=== PATIENT | male | born 1940 | race Caucasian/White ===

== ENCOUNTER 2018-05-09 20:02 | Emergency (ER) | payer MEDICARE, OTHER ==
[~2018-05-09] VITALS: Ht 185.4 cm; Wt 84.2 kg
[~2018-05-09 20:02] MED LIST: DILT120C62 PO; DOCU-28 PO; FLEC50TA PO; PANT-47 PO; POLY17PO10 PO
[2018-05-09] MEDS ORDERED: vancomycin/NS 1 GM ADD-VANTAGE 250 ML IV ONE (21:00)
[2018-05-09] MEDS ORDERED: clindamycin-Cleocin 900mg/D5W 50 ML IV ONE (21:00)
[2018-05-09] MEDS ORDERED: ondansetron 4mg rapidly disintigrating tab PO ONE (21:05)
[2018-05-09] MEDS ORDERED: HYDROcodone/acetaminophen 10/325mg tab PO ONE (21:05)
[2018-05-09] MEDS ORDERED: CEPH-572 PO (21:22)
[2018-05-09] MEDS ORDERED: ONDA4TAB9 PO (21:22)
[2018-05-09] MEDS ORDERED: HYDR-3965 PO (21:22)
[2018-05-09] MEDS ORDERED: CLIN150C2 PO (21:22)
[2018-05-09 23:04] VITALS: BP 103/64
[2018-05-11] MEDS ORDERED: DOCU250C4 PO (19:50)
[2018-05-11] MEDS ORDERED: RANI150T44 PO (19:50)
[2018-05-15] MEDS ORDERED: LACT1CAP26 PO (11:26)
[2018-05-15] MEDS ORDERED: CLIN150C2 PO (11:26)
== END 2018-05-09 23:09 | disposition home or self-care (01) ==
LOC: ER 20:03
DX: H60.11 Cellulitis of right external ear (principal); I48.91 Unspecified atrial fibrillation; K21.9 Gastro-esophageal reflux disease without esophagitis; G89.29 Other chronic pain; Z98.890 Other specified postprocedural states; Z88.5 Allergy status to narcotic agent; Z88.2 Allergy status to sulfonamides; Z79.899 Other long term (current) drug therapy
CPT/HCPCS: 87070; 87077; 87186; 96365; 96368; 99284; J3370; J3490

== ENCOUNTER 2018-05-18 17:46 | Emergency (ER) | payer MEDICARE, OTHER ==
[~2018-05-18] VITALS: Ht 185.4 cm; Wt 83.0 kg
[~2018-05-18 17:46] MED LIST changes: +CLIN150C2 PO; -DOCU-28 PO; +DOCU250C4 PO; +LACT1CAP26 PO; -PANT-47 PO; +RANI150T44 PO
[2018-05-18] MEDS ORDERED: mag hydrox/Alum hydrox/simeth 30ml oral suspension PO ONE (20:20)
[2018-05-18] MEDS ORDERED: LIDOcaine Viscous 15ml cup MM PRN (20:20)
[2018-05-18 21:24] VITALS: BP 112/57
== END 2018-05-18 21:25 | disposition home or self-care (01) ==
LOC: ER 17:47
DX: R13.10 Dysphagia, unspecified (principal); I48.91 Unspecified atrial fibrillation; K21.9 Gastro-esophageal reflux disease without esophagitis; Z98.890 Other specified postprocedural states; Z88.8 Allergy status to other drugs, medicaments and biological substances; Z88.2 Allergy status to sulfonamides; Z79.01 Long term (current) use of anticoagulants; Z79.899 Other long term (current) drug therapy
CPT/HCPCS: 99284

== ENCOUNTER 2018-11-06 11:40 | Emergency (ER) | payer MEDICARE, OTHER ==
[~2018-11-06] VITALS: Ht 185.4 cm; Wt 86.0 kg
[~2018-11-06 11:40] MED LIST changes: -CLIN150C2 PO
[2018-11-06 12:29] VITALS: BP 134/68
== END 2018-11-06 16:35 | disposition left against medical advice (07) ==
LOC: ER 11:40
DX: M79.604 Pain in right leg (principal); Z53.21 Procedure and treatment not carried out due to patient leaving prior to being seen by health care provider

== ENCOUNTER 2019-12-26 14:01 | Emergency (ER) | payer MEDICARE, OTHER ==
[~2019-12-26] VITALS: Ht 185.4 cm; Wt 87.0 kg
[~2019-12-26 14:01] MED LIST changes: +DOCU-329 PO; -DOCU250C4 PO; +RANI-648 PO; -RANI150T44 PO
[2019-12-26 14:16] VITALS: BP 117/71
[2019-12-26] MEDS ORDERED: acetaminophen 325mg tablet PO ONE (15:30)
[2019-12-26 15:49] LABS: BASOPHILS % (AUTO) 0.4 % (0-1); EOSINOPHILS # (AUTO) 0.1 X10'3 (0-0.9); EOSINOPHILS % (AUTO) 1.5 % (0-6); HEMATOCRIT 45.5 % (42.0-52.0); HEMOGLOBIN 15.6 g/dl (14.0-17.9); LYMPHOCYTES # (AUTO) 1.1 X10'3 (1.1-4.8); LYMPHOCYTES % (AUTO) 16.2 % (21-51); MEAN CORPUSCULAR HEMOGLOBIN 31.7 PG (27.0-31.0); MEAN CORPUSCULAR HGB CONC 34.4 g/dL (33.0-36.5); MEAN CORPUSCULAR VOLUME 92.1 FL (78-98); MEAN PLATELET VOLUME 8.2 FL (7.4-10.4); MONOCYTES # (AUTO) 0.9 X10'3 (0-0.9); MONOCYTES % (AUTO) 13.3 % (2-12); NEUTROPHILS # (AUTO) 4.5 X10'3 (1.8-7.7); NEUTROPHILS % (AUTO) 68.6 % (42-75); PLATELET COUNT 136 X10'3 (140-440); RED BLOOD COUNT 4.94 X10'6 (4.70-6.10); RED CELL DISTRIBUTION WIDTH 13.4 % (11.5-14.5); WHITE BLOOD COUNT 6.6 X10'3 (4.5-11.0)
[2019-12-26 15:58] LABS: PARTIAL THROMBOPLASTIN TIME 37 SECONDS (22-32)
[2019-12-26 16:00] LABS: ALANINE AMINOTRANSFERASE 23 U/L (12-78); ALBUMIN 3.8 G/DL (3.4-5.0); ALBUMIN/GLOBULIN RATIO 1.1 (1.1-1.5); ALKALINE PHOSPHATASE 77 IU/L (46-116); ANION GAP 5 (8-16); ASPARTATE AMINO TRANSFERASE 25 U/L (10-37); BILIRUBIN,TOTAL 0.4 MG/DL (0.1-1.0); BLOOD UREA NITROGEN 11 MG/DL (7-18); BUN/CREATININE RATIO 10.5 (5.4-32.0); CHLORIDE 104 MMOL/L (99-107); CREATININE 1.05 MG/DL (0.60-1.10); GLUCOSE 124 MG/DL (70-104); POTASSIUM 4.3 MMOL/L (3.5-5.1); SODIUM 140 MMOL/L (135-145); TOTAL CARBON DIOXIDE 30.9 MMOL/L (24-32); TOTAL PROTEIN 7.3 G/DL (6.4-8.2); eGFR 68 ML/MIN
[2019-12-26] MEDS ORDERED: TAM75C PO (17:20)
== END 2019-12-26 18:15 | disposition home or self-care (01) ==
LOC: ER 14:01
DX: J10.1 Influenza due to other identified influenza virus with other respiratory manifestations (principal); I48.91 Unspecified atrial fibrillation; K21.9 Gastro-esophageal reflux disease without esophagitis; G89.29 Other chronic pain; Z98.890 Other specified postprocedural states; Z90.49 Acquired absence of other specified parts of digestive tract; Z88.5 Allergy status to narcotic agent; Z88.2 Allergy status to sulfonamides; Z79.899 Other long term (current) drug therapy; Z79.01 Long term (current) use of anticoagulants
CPT/HCPCS: 36415; 71045; 80053; 83880; 85025; 85610; 85730; 87502; 87503; 99284

== ENCOUNTER 2021-03-17 09:09 | Emergency (ER) | payer MEDICARE, OTHER ==
[~2021-03-17] VITALS: Ht 185.4 cm; Wt 74.9 kg
[~2021-03-17 09:09] MED LIST changes: -DILT120C62 PO; +DILT30TA5 PO; -DOCU-329 PO; +FAMO40TA86 PO; +FLO0.4C PO; -LACT1CAP26 PO; +PANT40TA54 PO; -POLY17PO10 PO; -RANI-648 PO
[2021-03-17 09:37] VITALS: BP 122/79
[2021-03-17 10:22] LABS: CLARITY,URINE CLEAR (Clear); COLOR,URINE YELLOW (Yellow); GLUCOSE, URINE NEGATIVE (Neg); KETONES,URINE NEGATIVE (Neg); LEUKOCYTE ESTERASE ,URINE NEGATIVE (Neg); NITRITES, URINE NEGATIVE (Neg); OCCULT BLOOD,URINE NEGATIVE (Neg); PROTEIN,URINE NEGATIVE (Neg)
[2021-03-17 10:27] LABS: UA COLLECTION TYPE CLN CATCH MIDSTREAM
[2021-03-17 10:37] LABS: BASOPHILS % (AUTO) 0.3 % (0-1); EOSINOPHILS # (AUTO) 0.1 X10'3 (0-0.9); HEMATOCRIT 41.2 % (42.0-52.0); HEMOGLOBIN 13.6 g/dl (14.0-17.9); LYMPHOCYTES # (AUTO) 1.5 X10'3 (1.1-4.8); LYMPHOCYTES % (AUTO) 31.8 % (21-51); MEAN CORPUSCULAR HEMOGLOBIN 30.4 PG (27.0-31.0); MEAN CORPUSCULAR VOLUME 92.1 FL (78-98); MONOCYTES # (AUTO) 0.4 X10'3 (0-0.9); MONOCYTES % (AUTO) 9.1 % (2-12); NEUTROPHILS # (AUTO) 2.6 X10'3 (1.8-7.7); NEUTROPHILS % (AUTO) 55.8 % (42-75); PLATELET COUNT 151 X10'3 (140-440); RED BLOOD COUNT 4.47 X10'6 (4.70-6.10); RED CELL DISTRIBUTION WIDTH 13.8 % (11.5-14.5); WHITE BLOOD COUNT 4.7 X10'3 (4.5-11.0)
[2021-03-17 10:47] LABS: ALANINE AMINOTRANSFERASE 19 U/L (12-78); ALBUMIN 3.4 G/DL (3.4-5.0); ALKALINE PHOSPHATASE 77 IU/L (46-116); AMYLASE 35 U/L (25-115); ANION GAP 7 (8-16); ASPARTATE AMINO TRANSFERASE 20 U/L (10-37); BILIRUBIN,TOTAL 0.7 MG/DL (0.1-1.0); BLOOD UREA NITROGEN 12 MG/DL (7-18); CALCIUM 8.5 MG/DL (8.5-10.1); CHLORIDE 105 MMOL/L (99-107); CREATININE 0.92 MG/DL (0.60-1.10); GLUCOSE 101 MG/DL (70-104); LIPASE 63 U/L (73-393); POTASSIUM 4.3 MMOL/L (3.5-5.1); SODIUM 141 MMOL/L (135-145); TOTAL CARBON DIOXIDE 29.1 MMOL/L (24-32); TOTAL PROTEIN 6.9 G/DL (6.4-8.2); eGFR 79 ML/MIN
[2021-03-17] MEDS ORDERED: HYDR25SU32 RC (13:59)
[2021-03-17] MEDS ORDERED: POLY119P2 PO (14:00)
== END 2021-03-17 14:19 | disposition home or self-care (01) ==
LOC: ER 09:10
DX: K62.89 Other specified diseases of anus and rectum (principal); K59.00 Constipation, unspecified; I48.91 Unspecified atrial fibrillation; K21.9 Gastro-esophageal reflux disease without esophagitis; G47.39 Other sleep apnea; G89.29 Other chronic pain; Z79.899 Other long term (current) drug therapy; Z90.49 Acquired absence of other specified parts of digestive tract; Z88.8 Allergy status to other drugs, medicaments and biological substances; Z88.2 Allergy status to sulfonamides
CPT/HCPCS: 36415; 74022; 80053; 81003; 82150; 83690; 85025; 99284

== ENCOUNTER 2021-11-21 20:39 | Emergency (ER) | payer MEDICARE, OTHER ==
[~2021-11-21] VITALS: Ht 190.5 cm; Wt 80.0 kg
[~2021-11-21 20:39] MED LIST changes: +HYDR25SU32 RC; +POLY119P2 PO
[2021-11-21] MEDS ORDERED: normal saline 1000ML IV soln IV ONE (20:55)
[2021-11-21] MEDS ORDERED: IOHEXOL 12MG/ML oral solution 500 ML BOTTLE PO ONE (20:55)
[2021-11-21 21:00] LABS: BASOPHILS % (AUTO) 0.2 % (0-1); EOSINOPHILS # (AUTO) 0.2 X10'3 (0-0.9); EOSINOPHILS % (AUTO) 2.3 % (0-6); HEMATOCRIT 40.8 % (42.0-52.0); HEMOGLOBIN 13.9 g/dl (14.0-17.9); LYMPHOCYTES # (AUTO) 1.7 X10'3 (1.1-4.8); LYMPHOCYTES % (AUTO) 21.5 % (21-51); MEAN CORPUSCULAR HEMOGLOBIN 30.7 PG (27.0-31.0); MEAN CORPUSCULAR VOLUME 90.4 FL (78-98); MEAN PLATELET VOLUME 8.4 FL (7.4-10.4); MONOCYTES # (AUTO) 0.7 X10'3 (0-0.9); MONOCYTES % (AUTO) 8.5 % (2-12); NEUTROPHILS # (AUTO) 5.2 X10'3 (1.8-7.7); NEUTROPHILS % (AUTO) 67.5 % (42-75); PLATELET COUNT 155 X10'3 (140-440); RED BLOOD COUNT 4.52 X10'6 (4.70-6.10); RED CELL DISTRIBUTION WIDTH 13.7 % (11.5-14.5); WHITE BLOOD COUNT 7.7 X10'3 (4.5-11.0)
[2021-11-21 21:16] LABS: ALANINE AMINOTRANSFERASE 18 U/L (12-78); ALBUMIN 3.3 G/DL (3.4-5.0); ALBUMIN/GLOBULIN RATIO 1.1 (1.1-1.5); ALKALINE PHOSPHATASE 67 IU/L (46-116); ANION GAP 6 (8-16); ASPARTATE AMINO TRANSFERASE 23 U/L (10-37); BILIRUBIN,TOTAL 0.5 MG/DL (0.1-1.0); BLOOD UREA NITROGEN 18 MG/DL (7-18); BUN/CREATININE RATIO 17.5 (5.4-32.0); CALCIUM 8.7 MG/DL (8.5-10.1); CHLORIDE 103 MMOL/L (99-107); CREATININE 1.03 MG/DL (0.60-1.10); GLUCOSE 124 MG/DL (70-104); LIPASE 97 U/L (73-393); POTASSIUM 4.1 MMOL/L (3.5-5.1); SODIUM 141 MMOL/L (135-145); TOTAL CARBON DIOXIDE 31.6 MMOL/L (24-32); TOTAL PROTEIN 6.4 G/DL (6.4-8.2); eGFR 69 ML/MIN
[2021-11-21 22:30] LABS: CLARITY,URINE CLOUDY (Clear); COLOR,URINE YELLOW (Yellow); GLUCOSE, URINE NEGATIVE (Neg); KETONES,URINE NEGATIVE (Neg); LEUKOCYTE ESTERASE ,URINE NEGATIVE (Neg); NITRITES, URINE NEGATIVE (Neg); OCCULT BLOOD,URINE NEGATIVE (Neg); PH,URINE 8.5 (4.8-8.0); PROTEIN,URINE NEGATIVE (Neg); UROBILINOGEN,URINE 0.2 E.U/dL (0.2-1.0)
[2021-11-21 22:42] LABS: UA COLLECTION TYPE VOIDED
[2021-11-21 22:50] LABS: BACTERIA,URINE NONE SEEN /HPF (Neg); RBC,URINE 0-2 /HPF (0-2); SQUAMOUS EPITHELIAL CELL,UR FEW /LPF (FEW); WBC,URINE 0-4 /HPF (0-4)
[2021-11-21 22:51] LABS: AMORPHOUS PHOSPHATES 3+; MUCUS STRANDS FEW /LPF (Neg)
[2021-11-21] MEDS ORDERED: bisacodyl 10mg suppository rectal RC STA (23:18)
[2021-11-21] MEDS ORDERED: lactulose 20gm/30ml cup PO ONE (23:20)
[2021-11-21 23:50] VITALS: BP 108/58
== END 2021-11-22 00:28 | disposition home or self-care (01) ==
LOC: ER 20:39
DX: R10.84 Generalized abdominal pain (principal); K59.00 Constipation, unspecified; I48.91 Unspecified atrial fibrillation; K21.9 Gastro-esophageal reflux disease without esophagitis; G89.29 Other chronic pain; Z98.890 Other specified postprocedural states; Z88.2 Allergy status to sulfonamides; Z88.8 Allergy status to other drugs, medicaments and biological substances; Z79.899 Other long term (current) drug therapy
CPT/HCPCS: 36415; 71045; 74176; 80053; 81001; 83605; 83690; 84145; 85025; 87040; 99285; J7030

== ENCOUNTER 2023-01-10 21:03 | Emergency (ER) | payer OTHER, MEDICARE ==
[~2023-01-10] VITALS: Ht 185.4 cm; Wt 72.7 kg
[2023-01-10 21:46] LABS: BASOPHILS % (AUTO) 0.4 % (0-1); EOSINOPHILS # (AUTO) 0.2 X10'3 (0-0.9); EOSINOPHILS % (AUTO) 2.8 % (0-6); HEMATOCRIT 38.8 % (42.0-52.0); LYMPHOCYTES # (AUTO) 2.1 X10'3 (1.1-4.8); MEAN CORPUSCULAR HEMOGLOBIN 30.5 PG (27.0-31.0); MEAN CORPUSCULAR HGB CONC 33.4 g/dL (33.0-36.5); MEAN CORPUSCULAR VOLUME 91.3 FL (78-98); MEAN PLATELET VOLUME 7.5 FL (7.4-10.4); MONOCYTES # (AUTO) 0.7 X10'3 (0-0.9); MONOCYTES % (AUTO) 9.5 % (2-12); NEUTROPHILS # (AUTO) 4.6 X10'3 (1.8-7.7); NEUTROPHILS % (AUTO) 60.3 % (42-75); PLATELET COUNT 154 X10'3 (140-440); RED BLOOD COUNT 4.25 X10'6 (4.70-6.10); RED CELL DISTRIBUTION WIDTH 13.4 % (11.5-14.5); WHITE BLOOD COUNT 7.6 X10'3 (4.5-11.0)
[2023-01-10 21:57] LABS: ALANINE AMINOTRANSFERASE 10 U/L (12-78); ALBUMIN 3.2 G/DL (3.4-5.0); ALBUMIN/GLOBULIN RATIO 1.1 (1.1-1.5); ALKALINE PHOSPHATASE 64 IU/L (46-116); ANION GAP 3 (8-16); ASPARTATE AMINO TRANSFERASE 23 U/L (10-37); BILIRUBIN,TOTAL 0.4 MG/DL (0.1-1.0); BLOOD UREA NITROGEN 12 MG/DL (7-18); CALCIUM 8.3 MG/DL (8.5-10.1); CHLORIDE 101 MMOL/L (99-107); CREATININE 0.86 MG/DL (0.60-1.10); GLUCOSE 114 MG/DL (70-104); LIPASE 153 U/L (73-393); POTASSIUM 4.1 MMOL/L (3.5-5.1); SODIUM 133 MMOL/L (135-145); TOTAL CARBON DIOXIDE 28.6 MMOL/L (24-32); TOTAL PROTEIN 6.1 G/DL (6.4-8.2); eGFR 85 ML/MIN
[2023-01-10 22:07] LABS: CLARITY,URINE CLEAR (Clear); COLOR,URINE YELLOW (Yellow); GLUCOSE, URINE NEGATIVE (Neg); KETONES,URINE NEGATIVE (Neg); LEUKOCYTE ESTERASE ,URINE NEGATIVE (Neg); NITRITES, URINE NEGATIVE (Neg); OCCULT BLOOD,URINE NEGATIVE (Neg); PROTEIN,URINE NEGATIVE (Neg); UROBILINOGEN,URINE 0.2 E.U/dL (0.2-1.0)
[2023-01-10 22:08] LABS: UA COLLECTION TYPE CLN CATCH MIDSTREAM
[2023-01-10] MEDS ORDERED: acetaminophen 325mg tablet PO ONE (22:15)
[2023-01-10] MEDS ORDERED: iohexol 300mg/ml 100ml inj. ONE (22:18)
[2023-01-11] MEDS ORDERED: mineral oil 133ml enema RC PRN (00:15)
[2023-01-11] MEDS ORDERED: lactulose 20gm/30ml cup PO ONE (00:50)
[2023-01-11 01:25] VITALS: BP 131/70
== END 2023-01-11 01:27 | disposition home or self-care (01) ==
LOC: ER 21:05
DX: K59.00 Constipation, unspecified (principal); K21.9 Gastro-esophageal reflux disease without esophagitis; G89.29 Other chronic pain; M54.50 Low back pain, unspecified; I50.9 Heart failure, unspecified; Z88.2 Allergy status to sulfonamides; Z88.5 Allergy status to narcotic agent; Z90.49 Acquired absence of other specified parts of digestive tract
CPT/HCPCS: 36415; 74177; 80053; 81003; 83690; 85025; 99285; J3490; Q9967

== ENCOUNTER 2023-02-06 11:43 | Emergency (ER) | payer OTHER, MEDICARE ==
[~2023-02-06] VITALS: Ht 185.4 cm; Wt 72.7 kg
[2023-02-06] MEDS ORDERED: normal saline 1000ml 1,000 ML IV ONE (11:50)
[2023-02-06] MEDS ORDERED: lactobacillus acidophilus cap PO ONE (12:35)
[2023-02-06] MEDS ORDERED: lactobacillus rhamnosus 10,000 MMU CELLS/CAPSULE PO ONE (12:40)
[2023-02-06 12:55] LABS: BASOPHILS % (AUTO) 0.2 % (0-1); EOSINOPHILS # (AUTO) 0.1 X10'3 (0-0.9); EOSINOPHILS % (AUTO) 1.5 % (0-6); HEMOGLOBIN 14.1 g/dl (14.0-17.9); LYMPHOCYTES # (AUTO) 1.4 X10'3 (1.1-4.8); LYMPHOCYTES % (AUTO) 20.7 % (21-51); MEAN CORPUSCULAR HEMOGLOBIN 31.7 PG (27.0-31.0); MEAN CORPUSCULAR HGB CONC 34.3 g/dL (33.0-36.5); MEAN CORPUSCULAR VOLUME 92.4 FL (78-98); MEAN PLATELET VOLUME 7.7 FL (7.4-10.4); MONOCYTES # (AUTO) 0.5 X10'3 (0-0.9); NEUTROPHILS # (AUTO) 4.6 X10'3 (1.8-7.7); NEUTROPHILS % (AUTO) 69.6 % (42-75); PLATELET COUNT 156 X10'3 (140-440); RED BLOOD COUNT 4.44 X10'6 (4.70-6.10); RED CELL DISTRIBUTION WIDTH 13.6 % (11.5-14.5); WHITE BLOOD COUNT 6.6 X10'3 (4.5-11.0)
[2023-02-06 13:09] LABS: ALANINE AMINOTRANSFERASE 11 U/L (12-78); ALBUMIN 3.3 G/DL (3.4-5.0); ALKALINE PHOSPHATASE 67 IU/L (46-116); ANION GAP 4 (8-16); ASPARTATE AMINO TRANSFERASE 19 U/L (10-37); BILIRUBIN,TOTAL 0.4 MG/DL (0.1-1.0); BLOOD UREA NITROGEN 12 MG/DL (7-18); BUN/CREATININE RATIO 16.4 (10.0-20.0); CALCIUM 8.3 MG/DL (8.5-10.1); CHLORIDE 102 MMOL/L (99-107); CREATININE 0.73 MG/DL (0.60-1.10); GLUCOSE 93 MG/DL (70-104); POTASSIUM 4.4 MMOL/L (3.5-5.1); SODIUM 136 MMOL/L (135-145); TOTAL CARBON DIOXIDE 29.7 MMOL/L (24-32); TOTAL PROTEIN 6.5 G/DL (6.4-8.2); eGFR > 90 ML/MIN
[2023-02-06 13:14] LABS: MAGNESIUM 2.2 MG/DL (1.5-2.4)
[2023-02-06 13:37] LABS: CLARITY,URINE CLEAR (Clear); COLOR,URINE YELLOW (Yellow); GLUCOSE, URINE NEGATIVE (Neg); KETONES,URINE NEGATIVE (Neg); LEUKOCYTE ESTERASE ,URINE NEGATIVE (Neg); NITRITES, URINE NEGATIVE (Neg); OCCULT BLOOD,URINE NEGATIVE (Neg); PH,URINE 7.5 (4.8-8.0); PROTEIN,URINE NEGATIVE (Neg); UROBILINOGEN,URINE 0.2 E.U/dL (0.2-1.0)
[2023-02-06 13:45] LABS: UA COLLECTION TYPE CLN CATCH MIDSTREAM
[2023-02-06 14:49] VITALS: BP 135/63
== END 2023-02-06 15:06 | disposition home or self-care (01) ==
LOC: ER 11:45
DX: I87.8 Other specified disorders of veins (principal); K21.9 Gastro-esophageal reflux disease without esophagitis; I50.9 Heart failure, unspecified; Z88.5 Allergy status to narcotic agent; Z88.2 Allergy status to sulfonamides; Z90.49 Acquired absence of other specified parts of digestive tract
CPT/HCPCS: 36415; 71045; 80053; 81003; 83605; 83735; 83880; 84145; 85025; 87040; 93005; 99285; J7030

== ENCOUNTER 2023-07-11 03:01 | Emergency (ER) | payer OTHER, MEDICARE ==
[~2023-07-11] VITALS: Ht 188 cm; Wt 70.5 kg
[2023-07-11 03:06] VITALS: BP 125/71; PULSE 78; RESP 18; TEMP 98.5; O2SAT 95
[2023-07-11 03:58] LABS: ALANINE AMINOTRANSFERASE 12 U/L (12-78); ALBUMIN 3.1 G/DL (3.4-5.0); ALBUMIN/GLOBULIN RATIO 0.9 (1.1-1.5); ALKALINE PHOSPHATASE 65 IU/L (46-116); ANION GAP 7 (8-16); ASPARTATE AMINO TRANSFERASE 18 U/L (10-37); BILIRUBIN,TOTAL 0.5 MG/DL (0.1-1.0); BLOOD UREA NITROGEN 17 MG/DL (7-18); BUN/CREATININE RATIO 19.3 (10.0-20.0); CALCIUM 8.5 MG/DL (8.5-10.1); CHLORIDE 105 MMOL/L (99-107); CREATININE 0.88 MG/DL (0.60-1.10); GLUCOSE 114 MG/DL (70-104); POTASSIUM 4.1 MMOL/L (3.5-5.1); SODIUM 140 MMOL/L (135-145); TOTAL CARBON DIOXIDE 27.6 MMOL/L (24-32); TOTAL PROTEIN 6.5 G/DL (6.4-8.2); eCRCL 62 ML/MIN; eGFR 83 ML/MIN
[2023-07-11 04:00] LABS: BASOPHILS % (AUTO) 0.1 % (0-1); EOSINOPHILS # (AUTO) 0.2 X10'3 (0-0.9); EOSINOPHILS % (AUTO) 3.2 % (0-6); HEMATOCRIT 40.6 % (42.0-52.0); HEMOGLOBIN 13.3 g/dl (14.0-17.9); LYMPHOCYTES # (AUTO) 1.8 X10'3 (1.1-4.8); LYMPHOCYTES % (AUTO) 24.5 % (21-51); MEAN CORPUSCULAR HEMOGLOBIN 29.7 PG (27.0-31.0); MEAN CORPUSCULAR HGB CONC 32.8 g/dL (33.0-36.5); MEAN CORPUSCULAR VOLUME 90.7 FL (78-98); MEAN PLATELET VOLUME 8.5 FL (7.4-10.4); MONOCYTES # (AUTO) 0.9 X10'3 (0-0.9); MONOCYTES % (AUTO) 11.7 % (2-12); NEUTROPHILS # (AUTO) 4.4 X10'3 (1.8-7.7); NEUTROPHILS % (AUTO) 60.5 % (42-75); PLATELET COUNT 141 X10'3 (140-440); RED BLOOD COUNT 4.48 X10'6 (4.70-6.10); RED CELL DISTRIBUTION WIDTH 14.6 % (11.5-14.5); WHITE BLOOD COUNT 7.3 X10'3 (4.5-11.0)
[2023-07-11 04:04] LABS: STREP A SCREEN NEGATIVE (Neg)
== END 2023-07-11 04:50 | disposition home or self-care (01) ==
LOC: ER 03:02
DX: J06.9 Acute upper respiratory infection, unspecified (principal); Z20.822 Contact with and (suspected) exposure to COVID-19; K21.9 Gastro-esophageal reflux disease without esophagitis; G89.29 Other chronic pain; M54.9 Dorsalgia, unspecified; Z88.5 Allergy status to narcotic agent; Z88.8 Allergy status to other drugs, medicaments and biological substances
CPT/HCPCS: 36415; 71045; 80053; 84484; 85025; 87081; 87502; 87503; 87811; 87880; 93005; 99285

== ENCOUNTER 2025-03-19 16:58 | Emergency (ER) | payer MEDICARE, OTHER ==
[~2025-03-19] VITALS: Ht 188 cm; Wt 70.0 kg
[~2025-03-19 16:58] MED LIST changes: +CARB1TAB44 PO; -DILT30TA5 PO; +DONE-55 PO; -FAMO40TA86 PO; -FLO0.4C PO; +HYDR25SU7 RC; +TAMS-55 PO
--- NOTE | 2025-03-19 17:22 | ELECTROCARDIOGRAPH REPORT ---
[facility] Test Date: 2025-03-19 Test Time: 17:02:31 Pat Name: GOGO LEUNG Department: SHORT STAY 1ST FLOOR Patient ID: [id number] Room: Gender: M Manager Heart: : 1940 Requested By: KIZZY MALDONADO Order Number: [id number] Reading MD: Dr. Suman Howard Measurements Intervals [place] Rate: 59 P: 85 DE: 189 QRS: -52 QRSD: 111 T: 53 QT: 409 QTc: 406 Interpretive Statements Sinus rhythm Incomplete left bundle branch block Low voltage, precordial leads Electronically Signed On 03-20-2025 18:45:[address] Suman Howard Please click the below link to view image of tracing.
[2025-03-19 17:50] LABS: BASOPHILS % (AUTO) 0.2 % (0-1); EOSINOPHILS % (AUTO) 0.6 % (0-6); HEMATOCRIT 42.1 % (42.0-52.0); HEMOGLOBIN 14.2 g/dl (14.0-17.9); LYMPHOCYTES # (AUTO) 2.5 X10'3 (1.1-4.8); MEAN CORPUSCULAR HEMOGLOBIN 31.4 PG (27.0-31.0); MEAN CORPUSCULAR HGB CONC 33.7 g/dL (33.0-36.5); MEAN CORPUSCULAR VOLUME 93.1 FL (78-98); MEAN PLATELET VOLUME 8.6 FL (7.4-10.4); MONOCYTES # (AUTO) 0.7 X10'3 (0-0.9); MONOCYTES % (AUTO) 9.6 % (2-12); NEUTROPHILS # (AUTO) 3.7 X10'3 (1.8-7.7); NEUTROPHILS % (AUTO) 53.6 % (42-75); PLATELET COUNT 152 X10'3 (140-440); RED BLOOD COUNT 4.53 X10'6 (4.70-6.10); RED CELL DISTRIBUTION WIDTH 14.1 % (11.5-14.5); WHITE BLOOD COUNT 6.9 X10'3 (4.5-11.0)
[2025-03-19 18:04] LABS: ALANINE AMINOTRANSFERASE 13 U/L (12-78); ALKALINE PHOSPHATASE 60 IU/L (46-116); ANION GAP 2 (8-16); ASPARTATE AMINO TRANSFERASE 31 U/L (10-37); BILIRUBIN,TOTAL 0.3 MG/DL (0.1-1.0); BLOOD UREA NITROGEN 22 MG/DL (7-18); BUN/CREATININE RATIO 21.6 (10.0-20.0); CALCIUM 8.3 MG/DL (8.5-10.1); CHLORIDE 108 MMOL/L (99-107); CREATININE 1.02 MG/DL (0.60-1.10); GLUCOSE 94 MG/DL (70-104); POTASSIUM 4.1 MMOL/L (3.5-5.1); SODIUM 144 MMOL/L (135-145); TOTAL CARBON DIOXIDE 34.2 MMOL/L (24-32); TOTAL PROTEIN 5.9 G/DL (6.4-8.2); eCRCL 51 ML/MIN; eGFR 69 ML/MIN
[2025-03-19 18:12] LABS: PRO BRAIN NATRIURETIC PEPTIDE 108 PG/ML (0-450)
--- NOTE | 2025-03-19 18:21 | RADIOLOGY REPORT ---
CHEST RADIOGRAPH Indication: CP Technique: Single frontal view of the chest was obtained COMPARISON: DI CHEST,SINGLE VIEW on DOS: 10/10/24, DI CHEST,SINGLE VIEW on DOS: 07/11/23, CHEST,SINGLE V IEW on DOS: 02/06/23, CHEST,SINGLE VIEW on DOS: 11/21/21, CHEST,SINGLE VIEW on DOS: 01/24/21 FINDINGS: Lines and Tubes: None Lungs: Bibasilar patchy airspace opacities. Pleura: No definite effusion. No pneumothorax. Cardiomediastinal contours: Unremarkable Bones: Scattered osseous degenerative changes. IMPRESSION: Bibasilar subsegmental atelectasis +/- consolidation.
--- NOTE | 2025-03-19 18:58 | Physician Documentation ---
History of Present Illness ~ Chief Complaint: Chest Pain Stated Complaint: CP Time Seen by MD: 18:28 Primary Medical Doctor: Dr. Rene Blackmon Source: patient, family Mode of Arrival: EMS HPI Reviewed discharge summary October 2024 for chest pain history of Parkinson's dementia PTSD AFib sleep apnea, chronic abdominal pain, ultimately recommended for Lexiscan however left AMA Patient currently has no complaints. His is at bedside who states that he has been having intermittent nonexertional chest discomfort over the last several months. He is followed by cardiology and was recently increased on his flecainide. He has appointment coming up in 5 days with cardiology. Medication Reconciliation Allergies: Coded Allergies: hydromorphone (Verified Allergy, Severe, PASSES OUT, 07/11/23) Sulfa (Sulfonamide Antibiotics) (Verified Allergy, Unknown, RASH, 07/11/23) Scheduled Carbidopa/Levodopa (Carbidopa-Levo 25-100 Mg Odt), 1 TAB PO Q8H, (Reported) Donepezil Hcl (Donepezil Hcl), 1 TAB PO DAILY, (Reported) Flecainide Acetate (Flecainide Acetate), 1 TAB PO BID, (Reported) Hydrocortisone Acetate (Anusol-Hc), 1 SUPP RC Q12H Pantoprazole Sodium (Pantoprazole Sodium), 40 MG PO BKF Polyethylene Glycol 3350 (Miralax), 17 GM PO DAILY Tamsulosin Hcl* (Flomax*), 1 CAP PO DAILY, (Reported) Scheduled PRN Hydrocortisone Acetate (Hydrocortisone Acetate), 1 SUPP RC Q12H PRN for constipation, (Reported) Past Medical History Past Medical History: Glaucoma, Atrial Fibrillation, Sleep Apnea, Bowel Obstruction, GERD, Hernia, Chronic Back Pain Past Surgical History: abdominal surgery, cholecystectomy, colectomy, orthopedic surgeries Patient History: (CHF) Congestive heart failure MOTHER ([place]) Myocardial infarction Brother FH: CVA (cerebrovascular accident) Brother FH: alcohol abuse Brother FH: respiratory disease MOTHER FH: smoking Brother Other Past Family History: NONCONTRIBUTORY Alcohol Use: None Drug Use: none Lives with: Family Lives In: Home Occupation: retired Review of Systems All Other Systems at this time: Reviewed and Negative Constitutional: Denies: fever Cardiovascular: Denies: chest pain Physical Exam Vital Signs: Temperature: 98.3, Source: Oral, Heart Rate: 59, Respiratory Rate: 18, BP: 109/68, Pulse Oximetry: 97, Weight: 70.000 Oxygen Flow Rate: 0 Physical Exam Well-appearing no distress resting comfortably in bed No JVD Cardiac no murmur Respiratory clear to auscultation bilaterally no wheezing rhonchi or rales Lower extremity no edema Progress Progress Note I independently interpreted his labs troponin within normal limits Results/Orders Results/Orders Vital Signs 03/19/25 03/19/25 03/19/25 03/19/25 17:11 17:18 18:42 18:53 Temp 98.3 Pulse 60 57 Resp 14 18 12 B/P (MAP) 123/66 123/66 (85) Pulse Ox 97 98 O2 Flow Rate 0 03/19/25 18:54 Pulse 59 Resp 18 B/P (MAP) 109/68 (82) Pulse Ox 97 Laboratory Tests Test 03/19/25 17:37 White Blood Count 6.9 Red Blood Count 4.53 L Hemoglobin 14.2 Hematocrit 42.1 Mean Corpuscular Volume 93.1 Mean Corpuscular Hemoglobin 31.4 H Mean Corpuscular Hemoglobin Concent 33.7 Red Cell Distribution Width 14.1 Platelet Count 152 Mean Platelet Volume 8.6 Neutrophils (%) (Auto) 53.6 Lymphocytes (%) (Auto) 36.0 Monocytes (%) (Auto) 9.6 Eosinophils (%) (Auto) 0.6 Basophils (%) (Auto) 0.2 Neutrophils # (Auto) 3.7 Lymphocytes # (Auto) 2.5 Monocytes # (Auto) 0.7 Eosinophils # (Auto) 0.0 Basophils # (Auto) 0.0 CBC Comment Sodium Level 144 Potassium Level 4.1 Chloride Level 108 H Carbon Dioxide Level 34.2 H Anion Gap 2 L Blood Urea Nitrogen 22 H Creatinine 1.02 Estimated GFR/1.73 m2 69 BUN/Creatinine Ratio 21.6 H Glucose Level 94 Calcium Level 8.3 L Total Bilirubin 0.3 Aspartate Amino Transf (AST/SGOT) 31 Alanine Aminotransferase (ALT/SGPT) 13 Alkaline Phosphatase 60 Troponin I High Sensitivity 7 Pro-B-Type Natriuretic Peptide 108 Total Protein 5.9 L Albumin 3.0 L Globulin 2.9 Albumin/Globulin Ratio 1.0 L Chemistry Comments EKG/XRAY/CT/US/VASC/MRI EKG : Additional Comment EKG independently interpreted by myself time 5:02 p.m. indication chest pain normal sinus rhythm rate 59 left axis deviation incomplete left bundle branch block no ST or T-wave abnormalities Chest X-Ray : Additional Comments I independently interpreted his chest x-ray no pneumothorax no consolidation no infiltrates normal cardiomediastinal silhouette Heart Score: Heart Score Response (Comments) Value History Slightly Suspicious 0 EKG Normal 0 Age >65 2 Risk Factors 1 or 2 risk factors 1 Troponin Normal limit 0 Total 3 Medical Decision Making Additional info obtained from: old records Additional Information Acute coronary syndrome, angina, pulmonary embolism, atrial fibrillation with RVR Departure Disposition: HOME / SELF CARE / HOMELESS Impression: Primary Impression: Chest pain with low risk for cardiac etiology Additional Impression Text Patient with a low risk nonexertional chest pain ongoing over many months already followed by Cardiology with outpatient appointment coming up in 5 days. His EKG nonischemic and troponins within normal limits. He is chest pain-free at time of discharge Additional Instructions: Please follow up at his regular scheduled cardiology appointment. Return to the emergency department if his chest pain worsens Referrals: NO PRIMARY CARE PROVIDER (PCP) Signature Scribe Signature: na Attestation: HEATHER Wilson MD March 19, 2025 18:58
[2025-03-19 19:32] VITALS: BP 93/76; PULSE 67; RESP 19; TEMP 98.3; O2SAT 100
== END 2025-03-19 19:34 | disposition home or self-care (01) ==
LOC: ER 16:58
DX: R07.89 Other chest pain (principal); F02.80 Dementia in other diseases classified elsewhere, unspecified severity, without behavioral disturbance, psychotic disturbance, mood disturbance, and anxiety; G20.A1 Parkinson's disease without dyskinesia, without mention of fluctuations; G47.30 Sleep apnea, unspecified; I48.91 Unspecified atrial fibrillation; I50.9 Heart failure, unspecified; K21.9 Gastro-esophageal reflux disease without esophagitis; Z88.2 Allergy status to sulfonamides; Z88.5 Allergy status to narcotic agent; Z88.8 Allergy status to other drugs, medicaments and biological substances; Z90.49 Acquired absence of other specified parts of digestive tract
CPT/HCPCS: 36415; 71045; 80053; 83880; 84484; 85025; 93005; 99285

== ENCOUNTER 2025-08-06 23:59 | Emergency (ER) | payer OTHER, MEDICARE ==
[~2025-08-06] VITALS: Ht 188 cm; Wt 74.1 kg
[2025-08-07 00:08] VITALS: TEMP 97.7
--- NOTE | 2025-08-07 00:24 | Physician Documentation ---
History of Present Illness ~ Chief Complaint: ALOC Stated Complaint: SEE CHIEF COMPLAINT M BLS Time Seen by MD: 00:18 OK to notify your PCP?: Yes Primary Medical Doctor: Dr. Rene Blackmon Mode of Arrival: EMS, Stretcher HPI 84-year-old male, history of dementia and Parkinson's disease, who is brought in with increased weakness and confusion. Per EMS, the patient's called because he has had gradually worsening increased weakness and confusion. Per the , he had his Parkinson's meds stopped about a month ago, which is when his symptoms seem to begin to worsen. She restarted them several days ago without any improvement. Here in the ED, the patient denies any symptoms. He denies fevers, nausea, abd ominal pain, dysuria. His history is somewhat limited due to dementia. Later, I spoke to his . She tells me that the reason she called an ambulance was that she found him very sweaty and his blood pressure was slightly low. Otherwise she states all of the above symptoms have been gradually worsening over several weeks, and she is working on this with her neurologist. No other acute concerns. By time I speak to her, she says he seems back to normal and she would like to take him home. Medication Reconciliation Allergies: Coded Allergies: hydromorphone (Verified Allergy, Severe, PASSES OUT, 07/11/23) Sulfa (Sulfonamide Antibiotics) (Verified Allergy, Unknown, RASH, 07/11/23) Scheduled Carbidopa/Levodopa (Carbidopa-Levo 25-100 Mg Odt), 1 TAB PO Q8H, (Reported) Donepezil Hcl (Donepezil Hcl), 1 TAB PO DAILY, (Reported) Flecainide Acetate (Flecainide Acetate), 1 TAB PO BID, (Reported) Hydrocortisone Acetate (Anusol-Hc), 1 SUPP RC Q12H Pantoprazole Sodium (Pantoprazole Sodium), 40 MG PO BKF Polyethylene Glycol 3350 (Miralax), 17 GM PO DAILY Tamsulosin Hcl* (Flomax*), 1 CAP PO DAILY, (Reported) Scheduled PRN Hydrocortisone Acetate (Hydrocortisone Acetate), 1 SUPP RC Q12H PRN for constipation, (Reported) Past Medical History Past Medical History: Glaucoma, Atrial Fibrillation, Sleep Apnea, Bowel Obstruction, GERD, Hernia, Chronic Back Pain Past Surgical History: abdominal surgery, cholecystectomy, colectomy, orthopedic surgeries Patient History: (CHF) Congestive heart failure MOTHER ([place]) Myocardial infarction Brother FH: CVA (cerebrovascular accident) Brother FH: alcohol abuse Brother FH: respiratory disease MOTHER FH: smoking Brother Other Past Family History: NONCONTRIBUTORY Alcohol Use: None Drug Use: none Lives with: Family Lives In: Home Occupation: retired Review of Systems Unable to obtain complete ROS: dementia Physical Exam Vital Signs: Temperature: 97.7, Source: Oral, Heart Rate: 58, Respiratory Rate: 16, BP: 120/57, Pulse Oximetry: 98, Weight: 74.100 Oxygen Flow Rate: 0 Physical Exam General: This is a frail-appearing elderly man sitting calmly in bed HEENT: Atraumatic, oropharynx appears dry Heart: Regular rate and rhythm, normal-appearing peripheral perfusion Lungs: Diminished breath sounds bilateral, normal work of breathing, normal oxygen saturation on room air Abdomen: Soft, nondistended, nontender all quadrants Extremities: Warm and well-perfused, pitting edema to bilateral calves Neuro: Alert, has trouble with some orientation and questions regarding his history, no focal weakness Psychiatric: Calm and cooperative with exam Progress Results/Orders Results/Orders Orders - CLEO PATEL MD Straight Cath For Urine Sample (08/07/25 00:18) Completed Orders - CLEO PATEL MD Cbc/Diff (08/07/25 00:18) CMP (08/07/25 00:18) TSH (08/07/25 00:18) Urinalysis, Cult If Indicated (08/07/25 00:18) PBNP (08/07/25 00:23) Hs Troponin I W Calculations (08/07/25 00:23) Vital Signs 08/07/25 08/07/25 08/07/25 08/07/25 00:08 00:20 00:24 02:00 Temp 97.7 Pulse 62 58 66 Resp 16 16 16 16 B/P (MAP) 119/66 120/57 (78) 110/58 (75) Pulse Ox 97 98 98 O2 Flow Rate 0 0 0 Laboratory Tests Test 08/07/25 00:34 08/07/25 00:50 White Blood Count 7.3 Red Blood Count 3.93 L Hemoglobin 12.4 L Hematocrit 36.1 L Mean Corpuscular Volume 91.9 Mean Corpuscular Hemoglobin 31.5 H Mean Corpuscular Hemoglobin Concent 34.3 Red Cell Distribution Width 13.7 Platelet Count 137 L Mean Platelet Volume 8.3 Neutrophils (%) (Auto) 63.5 Lymphocytes (%) (Auto) 20.4 L Monocytes (%) (Auto) 11.8 Eosinophils (%) (Auto) 3.9 Basophils (%) (Auto) 0.4 Neutrophils # (Auto) 4.7 Lymphocytes # (Auto) 1.5 Monocytes # (Auto) 0.9 Eosinophils # (Auto) 0.3 Basophils # (Auto) 0.0 CBC Comment Sodium Level 141 Potassium Level 4.2 Chloride Level 107 Carbon Dioxide Level 31.2 Anion Gap 3 L Blood Urea Nitrogen 22 H Creatinine 1.02 Estimated GFR/1.73 m2 69 BUN/Creatinine Ratio 21.6 H Glucose Level 102 Calcium Level 8.1 L Total Bilirubin 0.5 Aspartate Amino Transf (AST/SGOT) 17 Alanine Aminotransferase (ALT/SGPT) 8 L Alkaline Phosphatase 54 Troponin I High Sensitivity 6 Pro-B-Type Natriuretic Peptide 241 Total Protein 6.2 L Albumin 2.4 L Globulin 3.8 Albumin/Globulin Ratio 0.6 L Thyroid Stimulating Hormone (TSH) 2.64 Chemistry Comments Urine Specimen Description Non-specified Urine Color Yellow Urine Clarity Clear Urine pH 6.0 Urine Specific [place] 1.025 Urine Protein Negative Urine Glucose (UA) Negative Urine Ketones Trace H Urine Occult Blood Negative Urine Nitrite Negative Urine Bilirubin Small Urine Urobilinogen 0.2 Urine Leukocyte Esterase Negative Urine Culture Indicated Not ind Volume Urine Centrifuged 10 ml Urine Comment Medical Decision Making Differential Dx:Considerations: Include: anemia, CVA, dehydration, dysrhythmia, electrolyte imbalance, encephalopathy, renal failure Additional Information The patient presents with nonspecific weakness and confusion that has gradually worsened over several weeks. Here in the ED he denies any symptoms and on exam has a benign abdominal exam and some mild edema in his legs. He does have a history of atrial fibrillation. His laboratory testing is reassuring. No evidence of ACS. No UTI. Later, I spoke to his , who tells me that he seems back to baseline and she would like to take him home. She does report a episode of sweating and low blood pressure, of unclear significance. It does sound like he has had a gradual decline, likely due to his chronic medical conditions. She was not interested in admission today. They will follow up with his neurologist and primary care doctor. Return precautions given. Departure Time of Disposition: 02:43 Disposition: 01 HOME / SELF CARE / HOMELESS Impression: Primary Impression: Sweating episode Additional Impression: Low blood pressure reading Condition: Improved Discharge Instructions: Hypotension Referrals: NO PRIMARY CARE PROVIDER (PCP) Education Educated: Family Educated regarding: diagnosis, need for follow up Signature Scribe Signature: na Attestation: CLEO Real MD Aug 07, 2025 00:24
[2025-08-07 00:50] LABS: MEAN PLATELET VOLUME 8.3 FL (7.4-10.4); RED CELL DISTRIBUTION WIDTH 13.7 % (11.5-14.5)
[2025-08-07 01:01] LABS: CREATININE 1.02 MG/DL (0.60-1.10); TOTAL CARBON DIOXIDE 31.2 MMOL/L (24-32); eCRCL 54 ML/MIN; eGFR 69 ML/MIN
[2025-08-07 01:06] LABS: LEUKOCYTE ESTERASE ,URINE NEGATIVE (Neg); NITRITES, URINE NEGATIVE (Neg); OCCULT BLOOD,URINE NEGATIVE (Neg)
[2025-08-07 01:09] LABS: PRO BRAIN NATRIURETIC PEPTIDE 241 PG/ML (0-450)
[2025-08-07 01:15] LABS: UA COLLECTION TYPE NON-SPECIFIED
[2025-08-07 02:55] VITALS: BP 132/61; PULSE 67; RESP 16; O2SAT 96
== END 2025-08-07 03:16 | disposition home or self-care (01) ==
LOC: ER 08-07
DX: R61 Generalized hyperhidrosis (principal); R03.0 Elevated blood-pressure reading, without diagnosis of hypertension; G47.30 Sleep apnea, unspecified; G89.29 Other chronic pain; K21.9 Gastro-esophageal reflux disease without esophagitis; I50.9 Heart failure, unspecified; I48.91 Unspecified atrial fibrillation; Z90.49 Acquired absence of other specified parts of digestive tract; Z88.5 Allergy status to narcotic agent; Z88.2 Allergy status to sulfonamides; Z79.899 Other long term (current) drug therapy
CPT/HCPCS: 36415; 80053; 81003; 83880; 84443; 84484; 85025; 99284; A4615